=== PATIENT | female | born 1975 | race Two or more races ===

== ENCOUNTER 2018-12-13 06:11 | Emergency (ER) | payer MEDICARE, OTHER ==
[~2018-12-13] VITALS: Ht 157.5 cm; Wt 63.5 kg
[2018-12-13 06:12] VITALS: BP 110/69
[2018-12-13] MEDS ORDERED: NITROGLYCERIN SUBLINGUAL 0.4 MG BOTTLE OF 25. SL PRN (06:30)
[2018-12-13] MEDS ORDERED: ASPIRIN CHEWABLE 81 MG TABLET. PO ONE (06:30)
[2018-12-13 06:42] LABS: CALCIUM 8.7 mg/dL (8.5-10.1); CREATININE 0.8 mg/dL (0.6-1.0); GFR 78.3; POTASSIUM 4.2 mmol/L (3.5-5.1)
[2018-12-13 06:48] LABS: ALBUMIN 3.7 g/dL (3.4-5.0); TOTAL BILIRUBIN 0.3 mg/dL (0.2-1.0); TOTAL PROTEIN 7.3 g/dL (6.4-8.2)
[2018-12-13 06:49] LABS: BASO % 0 % (0-3); EOS # 0.1 x10^3/uL (0.0-0.7); EOS % 1 % (0-3); HEMATOCRIT 30.5 % (36.0-47.0); HEMOGLOBIN 9.6 g/dL (12.0-15.5); LYMPH # 2.1 x10^3/uL (1.0-4.8); LYMPH % 33 % (24-48); MEAN CORPUSCULAR HEMOGLOBIN 22 pg (25-35); MEAN CORPUSCULAR HGB CONC 32 g/dL (31-37); MEAN CORPUSCULAR VOLUME 70 fL (79-100); MONO # 0.6 x10^3/uL (0.0-1.1); MONO % 10 % (0-9); NEUT # 3.6 x10^3/uL (1.8-7.7); NEUT % 56 % (31-73); PLATELET COUNT 221 x10^3/uL (140-400); RED BLOOD COUNT 4.35 x10^6/uL (3.50-5.40); RED CELL DISTRIBUTION WIDTH 18.3 % (11.5-14.5); WHITE BLOOD COUNT 6.4 x10^3/uL (4.0-11.0)
[2018-12-13 06:56] LABS: BILIRUBIN,URINE NEGATIVE (NEG); CLARITY,URINE CLEAR; COLOR,URINE YELLOW; NITRITE,URINE NEGATIVE (NEG); PH,URINE 5.5; PROTEIN,URINE NEGATIVE (NEG-TRACE); UROBILINOGEN,URINE 0.2 mg/dL (0.2 mg/dL)
[2018-12-13 07:01] LABS: AMPHETAMINE/METHAMPHETAMINE NEG (NEG); BARBITURATES NEG (NEG); BENZODIAZEPINES NEG (NEG); CANNABINOIDS NEG (NEG); COCAINE NEG (NEG); METHADONE NEG (NEG); OPIATES NEG (NEG); PHENCYCLIDINE NEG (NEG)
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
[2018-12-13 07:07] LABS: BACTERIA,URINE 0 /HPF (0-FEW); RBC,URINE RARE /HPF (0-2); WBC,URINE RARE /HPF (0-4)
[2018-12-13 07:08] LABS: SQUAMOUS EPITHELIAL CELL,UR OCC /LPF
--- NOTE | 2018-12-13 07:09 | RAD ---
PORTABLE CHEST 1V History: Chest pain. Comparison: May 13, 2014 Findings: No consolidation or pleural effusion. Normal heart size. Cardiac monitoring device noted. Impression: 1. No acute cardiopulmonary process. Electronically signed by: Nelson Augustin DO (12/13/2018 7:06 AM) [facility]
[2018-12-13 07:10] LABS: PROTHROMBIN TIME PATIENT 12.7 SEC (11.7-14.0)
[2018-12-13] MEDS ORDERED: KETOROLAC 30 MG/ML VIAL. IV ONE (07:15)
[2018-12-13] MEDS ORDERED: NAPR-683 PO (07:22)
[2018-12-13 09:53] LABS: HYPOCHROMIA PRESENT; MICROCYTOSIS PRESENT; PLT ESTIMATE ADEQUATE (ADEQUATE)
--- NOTE | 2018-12-13 10:13 | EKG ---
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
== END 2018-12-13 07:40 | disposition home or self-care (01) ==
LOC: ER 06:11
DX: R07.2 Precordial pain (principal); D64.9 Anemia, unspecified; I44.7 Left bundle-branch block, unspecified; I10 Essential (primary) hypertension; I25.10 Atherosclerotic heart disease of native coronary artery without angina pectoris
CPT/HCPCS: 36415; 71045; 80053; 80307; 81001; 81025; 82550; 83690; 83735; 83880; 84484; 85025; 85610; 93005; 96374; 99285; J1885

== ENCOUNTER → 2018-12-15 | Outpatient (CLI) | payer MEDICARE ==
[2018-12-13 06:12] VITALS: BP 110/69
[~2018-12-15] MED LIST: NAPR-683 PO
--- NOTE | 2018-12-15 11:00 | CARD ---
MR#: [id number] Date of Study: 12/15/2018 Ordering Physician: SHANICE PIERRE, Referring Physician: SHANICE PIERRE, Tech: Tereza Serrano RDCS APPROVED REPORT EXAM: Two-dimensional and M-mode echocardiogram with Doppler and color Doppler. INDICATION Peripheral Edema Murmur 2D DIMENSIONS RVDd2.5 (2.9-3.5cm)Left Atrium(2D)2.6 (1.6-4.0cm) IVSd0.6 (0.7-1.1cm)Aortic Root(2D)2.3 (2.0-3.7cm) LVDd4.6 (3.9-5.9cm)LVOT Diameter1.9 (1.8-2.4cm) PWd0.6 (0.7-1.1cm)LVDs3.2 (2.5-4.0cm) FS (%) 30.3 %SV55.3 ml LVEF(%)57.8 (>50%) Aortic Valve AoV Peak Karel.132.6cm/sAoV VTI25.6cm AO Peak GR.7.0mmHgLVOT Peak Karel.103.9cm/s LVOT VTI 22.72cmAO Mean GR.4mmHg ANDRÉS (VMAX)2.72bl2LFA (VTI)2.48cm2 Mitral Valve MV E Mjaftmgk37.4cm/sMV DECEL EZMJ633rh MV A Jknlpypd38.8cm/sMV HOB35fi E/A Ratio1.7MVA (PHT)3.92cm2 TDI E/Lateral E'6.7E/Medial E'11.6 Tricuspid Valve TR P. Ormxgcqg711um/sRAP TCSZSEIJ1phMx TR Peak Gr.65egQcZQIV11msLd Pulmonary Vein S1 Mzwyshoe98.2cm/sD2 Yvdskphu62.0cm/s LEFT VENTRICLE The left ventricle is normal size. There is normal left ventricular wall thickness. The left ventricu lar systolic function is normal and the ejection fraction is within normal range. The Ejection Fracti on is 55-60%. There is normal LV segmental wall motion. The left ventricular diastolic function and f illing is normal for age. RIGHT VENTRICLE The right ventricle is normal size. The right ventricular systolic function is normal. ATRIA The left atrium size is normal. The right atrium size is normal. The interatrial septum is intact wit h no evidence for an atrial septal defect or patent foramen ovale as noted on 2-D or Doppler imaging. AORTIC VALVE The aortic valve is not well visualized but appears to be functioning by Doppler interrogation. Doppl er and Color Flow revealed no significant aortic regurgitation. There is no significant aortic valvul ar stenosis. MITRAL VALVE The mitral valve is normal in structure and function. There is no evidence of mitral valve prolapse. There is no mitral valve stenosis. Doppler and Color-flow revealed trace mitral regurgitation. TRICUSPID VALVE The tricuspid valve is normal in structure and function. Doppler and Color Flow revealed trace to mil d tricuspid regurgitation. The PA pressure was estimated at 28 mmHg. There is no tricuspid valve sten osis. PULMONIC VALVE The pulmonic valve is not well visualized. Doppler and Color Flow revealed no pulmonic valvular regur gitation. There is no pulmonic valvular stenosis. GREAT VESSELS The aortic root is normal in size. The ascending aorta is normal in size. The IVC is normal in size a nd collapses >50% with inspiration. PERICARDIAL EFFUSION There is no evidence of significant pericardial effusion. Critical Notification Critical Value: No <Conclusion> The left ventricular systolic function is normal and the ejection fraction is within normal range. Th e Ejection Fraction is 55-60%. There is normal LV segmental wall motion. Signed by : Jean Becerra, Electronically Approved : 12/15/2018 10:59:34
== END | disposition home or self-care (01) ==
LOC: ECHO 08:58
PROVIDERS: ATTEND Internal Medicine Cardiovascular Disease
DX: I07.1 Rheumatic tricuspid insufficiency (principal)
CPT/HCPCS: 93306